=== PATIENT | female | born 1945 ===

== ENCOUNTER 2017-02-20 09:15 | Outpatient (CLI) | payer MEDICARE ==
[2017-02-20] MEDS ORDERED: BARIUM SULFATE 135 ML BOTTLE PO ONE (09:56)
== END 2017-02-20 09:16 | disposition home or self-care (01) ==
DX: K44.9 Diaphragmatic hernia without obstruction or gangrene (principal); K21.9 Gastro-esophageal reflux disease without esophagitis
CPT/HCPCS: 74220; A9270